=== PATIENT | male | born 1965 | race Caucasian/White ===

== ENCOUNTER → 2023-05-04 | Emergency (ER) | payer OTHER ==
[~2023-05-04] MED LIST: FLEET ENEMA ADULT PR ONE; HYDROMORPHONE HCL 1 MG/ML INJ ONE; MAGNESIUM CITRATE 300 ML BOT ONE; NA CHLORIDE 0.9% 1,000 ML ONE; ONDANSETRON 4 MG/2 ML VIAL ONE
--- OUTSIDE RECORDS SUMMARY | 2023-05-04 09:15 | XMS REPORT | Continuity of Care Document ---
Author Name Unknown Address [address] [facility] [address] [place] [id number] [facility] thconnect Address [address] [facility] [address] [place] [address] Care Team Providers Care Household Cook Name Role Phone CRYSTAL CONNORS Attending Clinician Unavailable CRYSTAL CONNORS Attending Clinician Arlette Cisneros RN Attending Clinician Unavailable CRYSTAL CONNORS Admitting Clinician [place] Payers Payer Name Policy Type Policy Number Effective Date Expirati on Date Source [employer] CHOICE POS II [id number] 2000 00:00:00 Problems Condition Name Condition Details Condition Category Status Onset Date Resolution Date Last Treatment Date Treating Clinician Comments Source Arm pain, lateral, right Arm pain, lateral, right Disease Active - 00:00: 00 Overview: Formattin g of this note might be different from the original. Last Assessmen t & Plan: Previousl y seen and treated by our PT dept for shoulder pain but a recent occult injury may involve another part of his right arm, will get a re-eval by PT and he is advised to take Motrin 800 prn and apply heat or ice for relief. His job is not expected to incite any further injury based on his descripti on of duties at work. [facility] Chronic right shoulder pain Chronic right shoulder pain Disease Active 2018-03 2- 00:00: 00 Overview: Formattin g of this note might be different from the original. Last Assessmen t & Plan: Arthritic process is most likely. Will get visits with our PT clinic prior to any imaging. For now needs no NSAIDS. [facility] Sciatica Sciatica Disease Active 2018-03 0 00:00: 00 [facility] Seasonal allergies Seasonal allergies Disease Active - 00:00: 00 [facility] Lumbar radiculopa thy Lumbar radiculopa thy Disease Active 1-15 00:00: 00 [facility] Benign prostatic hyperplasi a Benign prostatic hyperplasi a Disease Active 11-16 00:00: 00 [facility] Encounter for surgical follow-up care Encounter for surgical follow-up care Disease Active 06-11 00:00: 00 [facility] Chlorosis Chlorosis Disease Active 06-07 00:00: 00 [facility] Gall stones Gall stones Disease Active 06-07 00:00: 00 [facility] Acid reflux Acid reflux Disease Active 05-21 00:00: 00 [facility] Nausea Nausea Disease Active 05-21 00:00: 00 [facility] 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 05-10 00:00: 00 [facility] Allergies, Adverse Reactions, Alerts Allergy Name Allergy Type Status Severity Reaction(s) Onset Date Inactive Date Treating Clinician Comments Source Pollen Extract Propensi ty to adverse reaction s Active 07-24 00:00: 00 [facility] Social History Social Habit Start Date Stop Date Quantity Comments Source Tobacco use and exposure 2020-07-24 00:00:00 2020-07-24 00:00:00 Never used [facility] Alcohol intake 2020-07-24 00:00:00 2020-07-24 00:00:00 Lifetime non-drinker (finding) [facility] Sex Ass[birth year] At 1965 00:00:00 1965 00:00:00 [facility] Smoking Status Start Date Stop Date Source Never smoker [facility] Medications Ordered Medication Name Filled Medication Name Start Date Stop Date Current Medication? Ordering Clinician Indication Dosage Frequency Signature (SIG) Comments Components Source omeprazole (PriLOSEC) [address] capsule 09-05 00:00: 00 12-05 04:59 :00 No [id number] 20mg Q.5D Take 1 capsule (20 mg total) by mouth 2 (two) times a day. Do not crush or chew. [facility] omeprazole (PriLOSEC) [address] capsule 09-05 00:00: 00 12-05 04:59 :00 No [id number] 20mg Q.5D Take 1 capsule (20 mg total) by mouth 2 (two) times a day. Do not crush or chew. [facility] omeprazole (PriLOSEC) [address] capsule 09-05 00:00: 00 12-05 04:59 :00 No [id number] 20mg Q.5D Take 1 capsule (20 mg total) by mouth 2 (two) times a day. Do not crush or chew. [facility] polyethylen e glycol (Golytely) 236 g solution 07-24 00:00: 00 Yes [id number] 4000mL Take 4,000 mL by mouth 1 (one) time for 1 dose. Please start prep at 4pm the night before and be completed by midnight [facility] polyethylen e glycol (Golytely) 236 g solution 07-24 00:00: 00 Yes [id number] 4000mL Take 4,000 mL by mouth 1 (one) time for 1 dose. Please start prep at 4pm the night before and be completed by midnight [facility] polyethylen e glycol (Golytely) 236 g solution 07-24 00:00: 00 Yes [id number] 4000mL Take 4,000 mL by mouth 1 (one) time for 1 dose. Please start prep at 4pm the night before and be completed by midnight [facility] polyethylen e glycol (Golytely) 236 g solution 07-24 00:00: 00 Yes [id number] 4000mL Take 4,000 mL by mouth 1 (one) time for 1 dose. Please start prep at 4pm the night before and be completed by midnight [facility] polyethylen e glycol (Golytely) 236 g solution 07-24 00:00: 00 Yes [id number] 4000mL Take 4,000 mL by mouth 1 (one) time for 1 dose. Please start prep at 4pm the night before and be completed by midnight [facility] cyclobenzap rine (Flexeril) 10 MG tablet 2018-03 00:00: 00 Yes 10mg Take 10 mg by mouth 1 (one) time each day if needed. [facility] cyclobenzap rine (Flexeril) 10 MG tablet 2018-03 00:00: 00 Yes 10mg Take 10 mg by mouth 1 (one) time each day if needed. [facility] cyclobenzap rine (Flexeril) 10 MG tablet 2018-03 00:00: 00 Yes 10mg Take 10 mg by mouth 1 (one) time each day if needed. [facility] cyclobenzap rine (Flexeril) 10 MG tablet 2018-03 00:00: 00 Yes 10mg Take 10 mg by mouth 1 (one) time each day if needed. [facility] cyclobenzap rine (Flexeril) 10 MG tablet 2018-03 00:00: 00 Yes 10mg Take 10 mg by mouth 1 (one) time each day if needed. [facility] cyclobenzap rine (Flexeril) 10 MG tablet 2018-03 00:00: 00 Yes 10mg Take 10 mg by mouth 1 (one) time each day if needed. [facility] predniSONE (Deltasone) 20 MG tablet 2018-03 00:00: 00 Yes [facility] olopatadine (Patanase) 0.6 % solution nasal spray 2018-03 00:00: 00 Yes 2{spray } QD Administer 2 sprays into affected nostril(s) 1 (one) time each day. [facility] predniSONE (Deltasone) 20 MG tablet 2018-03 00:00: 00 Yes [facility] olopatadine (Patanase) 0.6 % solution nasal spray 2018-03 00:00: 00 Yes 2{spray } QD Administer 2 sprays into affected nostril(s) 1 (one) time each day. [facility] predniSONE (Deltasone) 20 MG tablet 2018-03 00:00: 00 Yes [facility] olopatadine (Patanase) 0.6 % solution nasal spray 2018-03 00:00: 00 Yes 2{spray } QD Administer 2 sprays into affected nostril(s) 1 (one) time each day. [facility] predniSONE (Deltasone) 20 MG tablet 2018-03 00:00: 00 Yes [facility] olopatadine (Patanase) 0.6 % solution nasal spray 2018-03 00:00: 00 Yes 2{spray } QD Administer 2 sprays into affected nostril(s) 1 (one) time each day. [facility] predniSONE (Deltasone) 20 MG tablet 2018-03 00:00: 00 Yes [facility] olopatadine (Patanase) 0.6 % solution nasal spray 2018-03 00:00: 00 Yes 2{spray } QD Administer 2 sprays into affected nostril(s) 1 (one) time each day. [facility] predniSONE (Deltasone) 20 MG tablet 2018-03 00:00: 00 Yes [facility] olopatadine (Patanase) 0.6 % solution nasal spray 2018-03 00:00: 00 Yes 2{spray } QD Administer 2 sprays into affected nostril(s) 1 (one) time each day. [facility] Vital Signs Vital Name Observation Time Observation Value Comments S our Systolic blood pressure 2020-07-24 15:13:00 106 mm[Hg] [facility] Diastolic blood pressure 2020-07-24 15:13:00 70 mm[Hg] [facility] Heart rate 2020-07-24 15:13:00 60 /min [facility] Body temperature 2020-07-24 15:13:00 37 [address] [facility] Body height 2020-07-24 15:13:00 177.8 cm [facility] Body weight 2020-07-24 15:13:00 100.064 kg [facility] BMI 2020-07-24 15:13:00 31.65 kg/m2 [facility] Encounters Start Date/Time End Date/Time Encounter Type Admission Type Attending Clinicians Care Facility Care Department Encounter ID Source 2020-07-24 11:01:[address] [facility] [id number] [facility] 2020-11-07 08:57:00 2020-11-07 11:50:00 Outpatient CRYSTAL CONNORS [facility] [id number] [facility] 2020-09-12 00:00:00 2020-09-12 00:00:00 Telephone Crystal Connors [facility] [id number] [facility] 2020-09-06 00:00:00 2020-09-06 00:00:00 Telephone Crystal Connors [facility] [id number] [facility] 2020-09-05 09:36:00 2020-09-05 12:05:00 Outpatient CRYSTAL CONNORS [id number] 2020-09-05 00:00:00 2020-09-05 00:00:00 Orders Only Crystal Connors [facility] [id number] [facility] 2020-08-22 00:00:00 2020-08-22 00:00:00 Telephone Crystal Connors [facility] [id number] [facility] 2020-07-24 10:00:56 2020-07-24 10:57:56 Office Visit Crystal Connors [facility] [id number] [facility] 2020-07-24 00:00:00 2020-07-24 00:00:00 Telephone Arlette Sauceda Lisa [facility] [id number] [facility]
--- NOTE | 2023-05-04 11:21 | RAD REPORT ---
EXAM DESCRIPTION: CT - Abdomen Pelvis W Contrast - 05/04/2023 11:03 am CLINICAL HISTORY: Abdominal pain COMPARISON: 2010 TECHNIQUE: Computed axial tomography of the abdomen pelvis was obtained. 100 cc Isovue-300 was admin istered intravenously. Oral contrast was not requested which limits evaluation of bowel and appendix All CT scans are performed using dose optimization technique as appropriate and may include automated exposure control or mA/KV adjustment according to patient size. FINDINGS: Cholecystectomy. Liver, spleen, pancreas, adrenals and kidneys unremarkable There is no evidence of diverticulitis. Normal appendix A small umbilical hernia. Spondylolysis L4. Mild anterior subluxation L4 on L5 Mild rectal wall thickening IMPRESSION: Mild rectal wall thickening may indicate mild inflammation
--- NOTE | 2023-05-04 12:54 | ER ---
Nurse's Notes [facility] Name: Pradeep Uribe Age: 58 yrs Sex: Male : 1965 Arrival Date: 05/04/2023 Time: 09:12 Bed 3 Private MD: Diagnosis: Constipation, abdominal pain, renal insufficiency Presentation: 05/04 09:23 Chief complaint: Patient states: is having pressure in his bottom, feels constipated, iw last BM was yesterday , he had diarrhea after being on antibiotics last week, then he took a pain pill on last Wednesday and he's had bowel issues since then. Coronavirus screen: At this time, the client does not indicate any symptoms associated with coronavirus-19. Ebola Screen: Patient negative for fever greater than or equal to 101.5 degrees Fahrenheit, and additional compatible Ebola Virus Disease symptoms Patient denies exposure to infectious person. Patient denies travel to an Ebola-affected area in the 21 days before illness onset. No symptoms or risks identified at this time. Onset of symptoms was May 04, 2023. 09:23 Method Of Arrival: Wheelchair iw 09:23 Acuity: LESVIA 3 iw 13:01 Risk Assessment: Do you want to hurt yourself or someone else? Patient reports no ll1 desire to harm self or others. 13:01 Initial Sepsis Screen: Does the patient meet any 2 criteria? No. Patient's initial ll1 sepsis screen is negative. Does the patient have a suspected source of infection? Yes: Acute abdominal pain. Historical: - Allergies: 09:25 No Known Allergies; iw - PMHx: 09:25 gerd; iw - PSHx: 09:25 deviated septum; Cholecystectomy; knee; hernia; iw - Immunization history:: Adult Immunizations not up to date. - Social history:: Smoking status: Patient denies any tobacco usage or history of. Screenin:52 [facility] ED Fall Risk Assessment (Adult) Score/Fall Risk Level 0 - 2 = Low Risk ll1 Oriented to surroundings, Maintained a safe environment, Educated pt \T\ family on fall prevention, incl call for assistance when getting out of bed, Hourly rounding (assess needs \T\ fall precautionary measures) done. Abuse screen: Denies threats or abuse. Nutritional screening: No deficits noted. Tuberculosis screening: No symptoms or risk factors identified. Assessment: 09:51 General: Appears uncomfortable, Behavior is calm, cooperative, appropriate for age. ll1 Pain: Complains of pain in abdomen. Pain: Quality of pain is described as aching, pressure. Neuro: Reports near syncope feeling. GI: Abdomen is round Reports lower abdominal pain, constipation, rectal area pressure. 10:21 Reassessment: No changes from previously documented assessment. Patient and/or family ll1 updated on plan of care and expected duration. Pain level reassessed. Patient is alert, oriented x 3, equal unlabored respirations, skin warm/dry/pink. 10:46 Reassessment: No changes from previously documented assessment. Patient and/or family iw updated on plan of care and expected duration. Pain level reassessed. Patient is alert, oriented x 3, equal unlabored respirations, skin warm/dry/pink. 11:35 Reassessment: No changes from previously documented assessment. Patient and/or family ap3 updated on plan of care and expected duration. Pain level reassessed. Patient is alert, oriented x 3, equal unlabored respirations, skin warm/dry/pink. Patient states feeling better. Patient states symptoms have improved. 12:08 Reassessment: No changes from previously documented assessment. Patient and/or family ap3 updated on plan of care and expected duration. Pain level reassessed. Patient is alert, oriented x 3, equal unlabored respirations, skin warm/dry/pink. 12:53 Reassessment: No changes from previously documented assessment. Patient and/or family ll1 updated on plan of care and expected duration. Pain level reassessed. Patient is alert, oriented x 3, equal unlabored respirations, skin warm/dry/pink. 13:00 Reassessment: No changes from previously documented assessment. Patient and/or family ll1 updated on plan of care and expected duration. Pain level reassessed. Patient is alert, oriented x 3, equal unlabored respirations, skin warm/dry/pink. Patient states feeling better. Patient states symptoms have improved. 13:01 GI: Bowel sounds present X 4 quads. Abd is soft and non tender X 4 quads. ll1 Vital Signs: 09:23 BP 128 / 75; Pulse 72; Resp 16; Temp 97.4; Pulse Ox 100% on R/A; Weight 107.5 kg; iw Height 5 ft. 10 in. ; Pain 7/10; 12:51 BP 142 / 79; Pulse 65; Resp 16; Pulse Ox 100% ; Pain 0/10; ll1 09:23 Body Mass Index 34.01 (107.50 kg, 177.8 cm) iw 09:23 Pain Scale: Adult iw 12:51 Pain Scale: Adult ll1 ED Course: 09:16 Patient arrived in ED. mg5 09:25 Triage completed. iw 09:26 Mukund Anthony MD is Attending Physician. sp3 09:26 Arm band placed on. iw 09:32 Morales Tierney, RN is Primary Nurse. ll1 09:40 Inserted saline lock: 20 gauge in left antecubital area, using aseptic technique. Blood ll1 collected. 09:52 Patient has correct armband on for positive identification. Bed in low position. Call ll1 light in reach. Provided Education on: ER procedures and process. Cardiac monitoring not applicable on this patient. 09:52 No provider procedures requiring assistance completed. ll1 11:05 CT Abd/Pelvis - IV Contrast Only In Process Unspecified. EDMS 13:01 IV discontinued, intact, bleeding controlled, No redness/swelling at site. Pressure ll1 dressing applied, x 2, B AC's. Administered Medications: 09:40 Drug: HYDROmorphone IVP 1 mg IVP once Route: IVP; Site: left antecubital; rs5 12:51 Follow up: Response: No adverse reaction; Pain is decreased; RASS: Alert and Calm (0) ll1 09:40 Drug: Ondansetron IVP 4 mg IVP once; over 2 minutes Route: IVP; Site: left antecubital; rs5 12:51 Follow up: Response: No adverse reaction; Nausea is decreased ll1 09:43 Drug: NS 0.9% IV 1000 ml IV at 1 bolus Per protocol; 1000 mL bolus Route: IV; Rate: 1 iw bolus; Site: left antecubital; 12:51 Follow up: Response: No adverse reaction; IV Status: Completed infusion; IV Intake: ll1 1000ml 10:00 Drug: Fleet Enema AK 133 ml AK once; may repeat once Route: AK; ll1 12:51 Follow up: Response: No adverse reaction ll1 10:20 Drug: Magnesium Citrate PO Liquid 300 ml PO once Route: PO; ll1 12:51 Follow up: Response: No adverse reaction ll1 Medication: 09:52 VIS not applicable for this client. ll1 Intake: 12:51 IV: 1000ml; Total: 1000ml. ll1 Outcome: 12:54 Discharge ordered by . sp3 13:01 Discharged to home ambulatory, ll1 13:01 Condition: stable 13:01 Discharge instructions given to patient, Instructed on discharge instructions, follow up and referral plans. Demonstrated understanding of instructions, follow-up care, 13:01 Patient left the ED. 1 Signatures: Dispatcher [employer] EDYessica Mayen, RN RN iw Morenita Tate RN RN ap3 Morales Tierney RN RN ll1 Mukund Anthony MD MD sp3 Willam Valdovinos RN RN rs5 Lisa Martin 5
--- NOTE | 2023-05-04 12:54 | EDPHYS ---
Physician Documentation [facility] Name: Pradeep Uribe Age: 58 yrs Sex: Male : 1965 Arrival Date: 05/04/2023 Time: 09:12 Bed 3 Private MD: ED Physician Mukund Anthony HPI: 05/04 09:32 This 58 yrs old Male presents to ER via Wheelchair with complaints of Pain, sp3 Constipation. 09:32 58-year-old male with history of GERD now presents to the ED with chief complaint lower sp3 abdominal pain and constipation worsening with attempts to have a bowel movement. Patient states he had deviated septum surgery approximately 1 week ago where he underwent general anesthesia and subsequent to that he has had "gut problems" with several days of diarrhea now followed by no BM for 2 days and feeling constipated with abdominal pain. He denies any other symptoms including fever, headache, URI symptoms, chest pain, shortness of breath, vomiting, bleeding, rash, or any other signs or symptoms on ROS at this time.. Historical: - Allergies: 09:25 No Known Allergies; iw - PMHx: 09:25 gerd; iw - PSHx: 09:25 deviated septum; Cholecystectomy; knee; hernia; iw - Immunization history:: Adult Immunizations not up to date. - Social history:: Smoking status: Patient denies any tobacco usage or history of. ROS: 09:33 Constitutional: Negative for fever, chills, and weight loss, Eyes: Negative for injury, sp3 pain, redness, and discharge, ENT: Negative for injury, pain, and discharge, Neck: Negative for injury, pain, and swelling, Cardiovascular: Negative for chest pain, palpitations, and edema, Respiratory: Negative for shortness of breath, cough, wheezing, and pleuritic chest pain, Back: Negative for injury and pain, MS/Extremity: Negative for injury and deformity, Skin: Negative for injury, rash, and discoloration, Neuro: Negative for headache, weakness, numbness, tingling, and seizure, Psych: Negative for depression, anxiety, suicide ideation, homicidal ideation, and hallucinations, Allergy/Immunology: Negative for hives, rash, and allergies, Endocrine: Negative for neck swelling, polydipsia, polyuria, polyphagia, and marked weight changes, 09:33 All other systems are negative, Exam: 09:33 Constitutional: This is a well developed, well nourished patient who is awake, alert, sp3 and in no acute distress. Head/Face: Normocephalic, atraumatic. Eyes: Pupils equal round and reactive to light, extra-ocular motions intact. Lids and lashes normal. Conjunctiva and sclera are non-icteric and not injected. Cornea within normal limits. Periorbital areas with no swelling, redness, or edema. ENT: Nares patent. No nasal discharge, no septal abnormalities noted. External auditory canals are clear. Oropharynx with no redness, swelling, or masses, exudates, or evidence of obstruction, uvula midline. Mucous membranes moist. Neck: Trachea midline, no thyromegaly or masses palpated, and no cervical lymphadenopathy. Supple, full range of motion without nuchal rigidity, or vertebral point tenderness. No Meningismus. Chest/axilla: Normal chest wall appearance and motion. Nontender with no deformity. No lesions are appreciated. Cardiovascular: Regular rate and rhythm with a normal S1 and S2. No gallops, murmurs, or rubs. Normal PMI, no JVD. No pulse deficits. Respiratory: Lungs have equal breath sounds bilaterally, clear to auscultation and percussion. No rales, rhonchi or wheezes noted. No increased work of breathing, no retractions or nasal flaring. Back: No spinal tenderness. No costovertebral tenderness. Full range of motion. Skin: Warm, dry with normal turgor. Normal color with no rashes, no lesions, and no evidence of cellulitis. MS/ Extremity: Pulses equal, no cyanosis. Neurovascular intact. Full, normal range of motion. Neuro: Awake and alert, GCS 15, oriented to person, place, time, and situation. Cranial nerves II-XII grossly intact. Motor strength 5/5 in all extremities. Sensory grossly intact. Cerebellar exam normal. Normal gait. 09:33 Abdomen/GI: Bilateral lower quadrant pain with palpation without peritoneal signs, rebound or guarding. Vital signs are normal., Vital Signs: 09:23 BP 128 / 75; Pulse 72; Resp 16; Temp 97.4; Pulse Ox 100% on R/A; Weight 107.5 kg; iw Height 5 ft. 10 in. ; Pain 7/10; 12:51 BP 142 / 79; Pulse 65; Resp 16; Pulse Ox 100% ; Pain 0/10; ll1 09:23 Body Mass Index 34.01 (107.50 kg, 177.8 cm) iw 09:23 Pain Scale: Adult iw 12:51 Pain Scale: Adult ll1 MDM: 09:27 Patient medically screened. sp3 09:34 Data reviewed: vital signs, nurses notes, old medical records, lab test result(s), sp3 radiologic studies. ED course: 58-year-old male with lower abdominal pain and constipation symptoms. Differential diagnosis includes colitis, constipation, functional abdominal pain, adhesion, other GI pathology. I am not highly suspicious for vascular pathology including aorta, sepsis, shock, spectrum, or any other critical pathology at this time. Workup will include laboratory values and CT scan of the abdomen pelvis with medication for pain and bowel stimulant as needed.. 12:51 ED course: Patient has mild rectal inflammation otherwise normal CT and labs except for sp3 mild bump in creatinine at 1.5. Patient had large bowel movement and now feels tremendously better. We will safely discharge him home at this time. Follow-up with PCP regarding repeat labs.. 05/04 09:30 Order name: CT Abd/Pelvis - IV Contrast Only; Complete Time: 11:27 sp3 05/04 09:30 Order name: IV Saline Lock; Complete Time: 09:32 sp3 05/04 09:30 Order name: Labs collected and sent; Complete Time: 09:32 sp3 Administered Medications: 09:40 Drug: HYDROmorphone IVP 1 mg IVP once Route: IVP; Site: left antecubital; rs5 12:51 Follow up: Response: No adverse reaction; Pain is decreased; RASS: Alert and Calm (0) ll1 09:40 Drug: Ondansetron IVP 4 mg IVP once; over 2 minutes Route: IVP; Site: left antecubital; rs5 12:51 Follow up: Response: No adverse reaction; Nausea is decreased ll1 09:43 Drug: NS 0.9% IV 1000 ml IV at 1 bolus Per protocol; 1000 mL bolus Route: IV; Rate: 1 iw bolus; Site: left antecubital; 12:51 Follow up: Response: No adverse reaction; IV Status: Completed infusion; IV Intake: ll1 1000ml 10:00 Drug: Fleet Enema AL 133 ml AL once; may repeat once Route: AL; ll1 12:51 Follow up: Response: No adverse reaction ll1 10:20 Drug: Magnesium Citrate PO Liquid 300 ml PO once Route: PO; ll1 12:51 Follow up: Response: No adverse reaction ll1 Disposition Summary: 05/04/23 12:54 Discharge Ordered Notes: Location: Home sp3 Condition: Stable sp3 Diagnosis - Constipation, abdominal pain, renal insufficiency sp3 Followup: sp3 - With: Private Physician - When: Upon discharge from the Emergency Department - Reason: Continuance of care Discharge Instructions: - Discharge Summary Sheet sp3 - Constipation, Adult sp3 Forms: - Medication Reconciliation Form sp3 - Thank You Letter sp3 - Antibiotic Education sp3 - Prescription Opioid Use sp3 - Patient Portal Instructions sp3 - Leadership Thank You Letter sp3 Signatures: Dispatcher [employer] EDYesisca Mayen RN RN iw Morales Tierney RN RN ll1 Mukund Anthony MD MD sp3 Willam Valdovinos RN RN rs5 Corrections: (The following items were deleted from the chart) 12:52 12:51 ED course: Patient has mild rectal inflammation otherwise normal CT and labs. sp3 Patient had large bowel movement and now feels tremendously better. We will safely discharge him home at this time.. sp3
[2023-05-04 13:22] VITALS: BP 142/79; TEMP 97.4; O2SAT 100
== END ==
LOC: ER 09:12
DX: K59.00 Constipation, unspecified (principal); N28.9 Disorder of kidney and ureter, unspecified
CPT/HCPCS: 74177; Q9967; J1170; J2405; J7030